=== PATIENT | female | born 1975 | race American Indian/Alaskan Native ===

== ENCOUNTER 2017-04-07 16:53 | Emergency (ER) | payer BC ==
[2017-04-07 17:04] VITALS: TEMP 97.8
[2017-04-07] MEDS ORDERED: Sodium Chloride 0.9% 500 ML IV ONE (17:25)
[2017-04-07] MEDS ORDERED: Albuterol-Ipratrop 3 mg / 0.5 (3 ml) UD IH STA (17:25)
[2017-04-07] MEDS ORDERED: Albuterol-Ipratrop 3 mg / 0.5 (3 ml) UD ONE ×2 (17:28→17:33)
--- NOTE | 2017-04-07 17:29 | C.PDOC ---
History Of Present Illness 42 yo female w/PMHx of NIDDM, asthma, smoker, come in for evaluation of URI sx for past few days associated with chills, productive cough with clear sputum. Since last night, developed chest tightness with coughing, (+) wheezing. Denies use of asthma medication. Otherwise, pt denies fever, chills, headache, dizziness, neck pain, drooling, dysphagia, dyspnea, palpitation, diaphoresis, abd. pain, N/V/D, back pain, UTI sx. At the time of evaluation, not in any apparent distress. Occasional dry cough noted. Time Seen by Provider: 04/07/17 17:18 Chief Complaint (Nursing): Cough, Cold, Congestion History Per: Patient Past Medical History Reviewed: Historical Data, Nursing Documentation, Vital Signs Vital Signs: Last Vital Signs Temp 97.8 F 04/07/17 17:04 Pulse 75 04/07/17 19:15 Resp 18 04/07/17 19:15 BP 124/75 04/07/17 19:15 Pulse Ox 98 04/07/17 19:15 - Medical History PMH: Asthma Surgical History: Cholecystectomy Family History: States: No Known Family Hx - Social History Hx Tobacco Use: Yes Hx Alcohol Use: Yes Hx Substance Use: No - Immunization History Hx Tetanus Toxoid Vaccination: No Hx Influenza Vaccination: No Hx Pneumococcal Vaccination: Yes Review Of Systems Except As Marked, All Systems Reviewed And Found Negative. Constitutional: Positive for: Fever, Chills ENT: Positive for: Nose Discharge, Nose Congestion. Negative for: Ear Discharge , Throat Swelling Cardiovascular: Negative for: Chest Pain, Palpitations, Edema, Light Headedness Respiratory: Positive for: Cough, Shortness of Breath, Sputum, Wheezing Gastrointestinal: Negative for: Nausea, Vomiting, Abdominal Pain, Diarrhea Genitourinary: Negative for: Dysuria Musculoskeletal: Negative for: Neck Pain Skin: Negative for: Rash Neurological: Negative for: Weakness, Numbness, Altered Mental Status, Headache Physical Exam - Physical Exam Appears: Well, Non-toxic, No Acute Distress Skin: Normal Color, Warm, Dry, No Rash Eye(s): bilateral: PERRL Nose: No Flaring Oral Mucosa: Moist, No Drooling Throat: No Erythema, No Exudate, No Drooling Neck: Supple Cardiovascular: Rhythm Regular Respiratory: No Decreased Breath Sounds, No Accessory Muscle Use, No Rales, No Rhonchi, No Stridor, Wheezing (diffuse B/L, BS equal B/L.) Gastrointestinal/Abdominal: Soft, No Tenderness, No Distention, No Guarding Back: No CVA Tenderness Extremity: No Pedal Edema Neurological/Psych: Oriented x3, Normal Speech ED Course And Treatment O2 Sat by Pulse Oximetry: 97 Pulse Ox Interpretation: Normal - Radiology CXR: Interpreted by Me, Viewed By Me CXR Interpretation: Yes: No Acute Disease - Other Rad CXR X-Ray: Read By Radiologist Interpretation: Study Comment : Sex / Age : F / 42Y. Creator : Puja Bernal MD. Dictator : Puja Bernal MD. Digester Operator : Planner Scheduler : Puja Bernal MD. Approver2 : Report Date : 04/07/2017 17:32:21. My Comment : . HISTORY: Cough. COMPARISON: None available. TECHNIQUE: Chest PA and lateral. FINDINGS: Examination limited by habitus. LUNGS: Biapical pleural thickening. No focal consolidation. Please note that chest x- ray has limited sensitivity for the detection of pulmonary masses. PLEURA: No significant pleural effusion identified. No definite pneumothorax . CARDIOVASCULAR: The cardiomediastinal silhouette appears within normal limits of size. OSSEOUS STRUCTURES: Mild degenerative changes of the spine including tiny anterior osteophytes. VISUALIZED UPPER ABDOMEN: Unremarkable. OTHER FINDINGS: None. IMPRESSION: No acute findings. Incidental findings as above. Progress Note: On re-eval, pt reports mod improvement in asthma sx. PUlseOx 97 % rA. PEAK: pre-tx- 250 and after -tx- 300. Afebrile, hemodynamicaly stable. Non-toxic. Neck: (-) meningeal sign. ENT: No acute findings. Lungs: mod improvement in wheezing B/L, BS equal B/L. Abd: benign. CXR: no acute findings. Pt ahs clinical findings c/w asthma exaceration. Pt advised and ref. to F/u with PMD, Pulmonology in 1-2 days for re-eavl. return to ED if any worsening or new changes. Disposition Counseled Patient/Family Regarding: Studies Performed, Diagnosis, Need For Followup, Rx Given - Disposition Referrals: Yeyo Manzano MD [Medical Doctor] - Disposition: HOME/ ROUTINE Disposition Time: 18:15 Condition: STABLE Additional Instructions: Encourage fluids Take medication as prescribed Follow up with PMD, Pulmonology in 1-2 days for re-evaluation. Return to ED if any worsening or new changes. Prescriptions: Albuterol 0.083% [Albuterol 0.083% Inhal Marie (2.5 mg/3 ml) UD] 2.5 mg IH Q6 #50 neb Albuterol HFA [Ventolin HFA 90 mcg/actuation (8 g)] 1 puff IH Q6 #1 inhaler Mask, Face [Nebulizer Aerosol Mask Adult] 1 dev XX PRN PRN #1 dev PRN Reason: Cough Nebulizer [Aeroeclipse II] 1 each MC BID #1 each Prednisone [Deltasone] 60 mg PO DAILY #9 tablet Instructions: Asthma (ED) Forms: Work Excuse - Clinical Impression Clinical Impression: Asthma
--- NOTE | 2017-04-07 17:34 | RAD ---
HISTORY: Cough COMPARISON: None available. TECHNIQUE: Chest PA and lateral FINDINGS: Examination limited by habitus. LUNGS: Biapical pleural thickening. No focal consolidation. Please note that chest x-ray has limited sensitivity for the detection of pulmonary masses. PLEURA: No significant pleural effusion identified. No definite pneumothorax . CARDIOVASCULAR: The cardiomediastinal silhouette appears within normal limits of size. OSSEOUS STRUCTURES: Mild degenerative changes of the spine including tiny anterior osteophytes. VISUALIZED UPPER ABDOMEN: Unremarkable. OTHER FINDINGS: None. IMPRESSION: No acute findings. Incidental findings as above.
[2017-04-07] MEDS ORDERED: Sodium Chloride 0.9% 1,000 ML ONE (17:44)
[2017-04-07] MEDS ORDERED: Albuterol-Ipratrop 3 mg / 0.5 (3 ml) UD INH STA (18:04)
[2017-04-07 19:39] VITALS: BP 124/75; PULSE 75; RESP 18
[2017-04-07 20:41] VITALS: O2SAT 97
== END 2017-04-07 19:39 | disposition home or self-care (01) ==
LOC: C.ER 16:53
DX: J45.909 Unspecified asthma, uncomplicated (principal); Z72.0 Tobacco use
CPT/HCPCS: 71020; 94150; 94640; 96361; 96374; 99284; J2930; J7040